=== PATIENT | female | born 1975 | race Caucasian/White ===

== ENCOUNTER 2024-07-23 06:43 | Day surgery (SDC) | payer OTHER ==
[~2024-07-23 06:43] MED LIST: Acetaminophen 1,000 MG in Premix Bag 1 BAG IV SCH; Lactated Ringers 1,000 ML IV SCH; Pregabalin 75 MG Cap PO SCH; ceFAZolin 2 GM in Sodium Chloride 0.9% 50 ML IV ONE
[2024-07-23] MEDS ORDERED: Bupivacaine 0.25% 10 ML SDV ONE (07:02)
[2024-07-23] MEDS ORDERED: Ropivacaine 0.5% 5 MG/ML 30 ML SDV ONE (07:02)
[2024-07-23] MEDS ORDERED: Bupivacaine 0.5% 30 ML SDV ONE (07:09)
[2024-07-23] MEDS: Scopalamine 1mg/3day Transdermal Patch TOP ONE (07:10)
[2024-07-23] MEDS: Pregabalin 75 MG Cap PO SCH (07:10)
[2024-07-23] MEDS ORDERED: Propofol 200 MG/20 ML SDV ONE (07:18)
[2024-07-23] MEDS ORDERED: Lidocaine 2% 5 ML SDV ONE (07:18)
[2024-07-23] MEDS ORDERED: fentaNYL 100 MCG/2 ML SDV ONE (07:18)
[2024-07-23] MEDS: Lactated Ringers 1,000 ML IV SCH (07:24)
[2024-07-23] MEDS ORDERED: Dexamethasone 4 MG/ML 5 ML MDV ONE (07:46)
[2024-07-23] MEDS ORDERED: Ondansetron 4 MG/2 ML SDV ONE (07:46)
[2024-07-23] MEDS ORDERED: Rocuronium Bromide 50 MG/5 ML Syringe ONE ×2 (07:46→09:21)
[2024-07-23] MEDS ORDERED: ceFAZolin 1 GM Vial ONE (07:59)
[2024-07-23] MEDS ORDERED: Sugammadex Sodium 200 MG/2 ML VIAL IV ONE (08:10)
[2024-07-23] MEDS ORDERED: Ketorolac 30 MG/ML SDV ONE (08:10)
[2024-07-23] MEDS ORDERED: HYDROmorphone 1 MG/ML Syringe IVPUSH PRN (08:20)
[2024-07-23] MEDS ORDERED: Naloxone 0.4 MG/ML SDV IVPUSH PRN (08:20)
[2024-07-23] MEDS ORDERED: Albuterol 0.083% 2.5 MG/3 ML Neb Soln NEB PRN (08:20)
[2024-07-23] MEDS ORDERED: Ondansetron 4 MG/2 ML SDV IVPUSH PRN (08:20)
[2024-07-23] MEDS ORDERED: Phenylephrine HCl In 0.9% NaCl 1 MG/10 ML Syringe IVPUSH PRN (08:20)
[2024-07-23] MEDS ORDERED: Morphine 2 MG/ML SYRINGE IVPUSH PRN (08:20)
[2024-07-23] MEDS ORDERED: fentaNYL 50 MCG/ML SDV IVPUSH PRN (08:20)
[2024-07-23] MEDS ORDERED: Metoclopramide 10 MG/2 ML SDV IVPUSH PRN (08:20)
== END 2024-07-23 12:45 | disposition home or self-care (01) ==
LOC: MW.SDS 06:43
PROVIDERS: ATTEND Surgery
DX: K41.90 Unilateral femoral hernia, without obstruction or gangrene, not specified as recurrent (principal); D64.9 Anemia, unspecified; Z86.16 Personal history of COVID-19; Z79.899 Other long term (current) drug therapy
CPT/HCPCS: 49659; 81025; A9270; J0131; J0665; J0690; J1100; J1885; J2704; J2795; J3010; J3490; J7120; J2405